=== PATIENT | male | born 1955 | race Caucasian/White ===

== ENCOUNTER 2020-09-21 11:28 | Emergency (ER) | payer MEDICARE, OTHER, SELFPAY ==
[2020-09-21 11:40] VITALS: BP 154/81; PULSE 62; RESP 15; TEMP 37.2; O2SAT 98; BMI 27.9
--- NOTE | 2020-09-21 12:56 | ED_ITS ---
HPI - Extremity Problem General Chief complaint: Extremity Problem,Nontraumatic Stated complaint: blood clot in leg/ from walk in Time Seen by Provider: 09/21/20 12:51 Source: patient Mode of arrival: Ambulatory Limitations: no limitations History of Present Illness HPI Narrative: Patient complains of swelling to the left proximal medial leg. Denies any known injury. Has swelling and then dependent ecchymosis since Wednesday. Denies any history of blood clots in legs or lungs. Denies any chest pain or dyspnea or palpitations. Patient not on any anticoagulation other than aspirin. No liver disease. No history anemia or thrombocytopenia. Related Data Home Medications Medication Instructions Recorded Confirmed aspirin 81 mg tablet,delayed 81 mg PO DAILY 09/21/20 09/21/20 release Allergies Allergy/AdvReac Type Severity Reaction Status Date / Time erythromycin base Allergy Verified 09/21/20 11:46 Review of Systems Review of Systems Narrative: GENERAL: Denies chills, fatigue, malaise, fever, sweats. HEENT: Denies sinus pain, ear pain, sore throat RESPIRATORY: Denies dyspnea, cough CARDIOVASCULAR: Denies chest pain, palpitations GASTROINTESTINAL: Denies nausea, vomiting, abdominal pain : Denies dysuria, frequency, hematuria MUSCULOSKELETAL: Complaint muscle or bony pain SKIN: Denies rash, skin lesions NEUROLOGIC: Denies weakness, numbness ROS Unobtainable: All systems reviewed & are unremarkable except as noted in HPI and below Patient History Social History Smoking Status: Unknown if ever smoked Smoking Status: Unknown if ever smoked alcohol intake frequency: 0-2 drinks per day Substance Use Type: does not use Exam Narrative Exam Narrative: GENERAL: in no distress, not toxic not dyspneic HEAD: Normocephalic. EYES: Pupils equal round ENT: Mucous membranes moist. NECK: Trachea midline. CARDIOVASCULAR: Regular rate and rhythm without murmurs RESPIRATORY: Clear to auscultation. Breath sounds equal bilaterally. No wheezes, rales, or rhonchi. GASTROINTESTINAL: Abdomen soft, non-tender EXTREMITIES: Examination left lower extremity. Needed toes exposed. Foot warm soft and pink with strong pedal pulse and light touch intact to foot and toes. Nontender knee and ankle. At the medial proximal leg there is 4 cm diameter mob ile mildly tender cyst/hematoma. There is dependent ecchymoses tracking inferiorly to this. No calf tenderness or palpable cords. No pain with press test or Stanley test NEURO: AOx4. SKIN: Warm and dry PSYCH: Not anxious, is cooperative Initial Vital Signs Initial Vital Signs: Vital Signs Temperature 98.9 F 09/21/20 11:40 Pulse Rate 62 09/21/20 11:40 Respiratory Rate 15 09/21/20 11:40 Blood Pressure 154/81 H 09/21/20 11:40 Pulse Oximetry 98 09/21/20 11:40 Course Course Course Narrative: No new issues during course of stay Orders Ordered: ED Orders 09/21/20 12:55 US periph venous low extrem lt Stat 09/21/20 12:58 XR tibia fibula LT 2V Stat Reevaluation(s) Reevaluation #1: Reviewed with patient results. Agrees no blood work. At this time no risk factors for coagulopathy. Time: 14:19 Vital Signs Vital signs: Vital Signs - 8 hr 09/21/20 11:40 Temperature 98.9 F Pulse Rate 62 Respiratory Rate 15 Blood Pressure 154/81 H Pulse Oximetry 98 MDM - Extremity (Nontraumatic) Differential Diagnosis Differential diagnosis: Likely superficial thrombophlebitis, deep vein thrombosis of lower extremity and other (Hematoma) Imaging Data US - DVT: Radiologist's Impression: [address] [id number] ReportSigned Patient: Phil Lovett#: [id number]: 5Acct:[id number]/Sex: 65 / MDate of Service: 09/21/20Loc: EDAccession Number: [id number] Procedure: US periph venous low extrem lt Ordering Provider: Shlomo Betnacourt MD PROCEDURE: US PERIPH VENOUS LOW EXTREM LT INDICATIONS: LEFT LOVING HEMATOMA TECHNIQUE: Real-time imaging, as well as color and pulse Doppler interrogation, were performed of the lower extremity deep veins from the inguinal ligament to the popliteal fossa. COMPARISON: None. FINDINGS: The common femoral, femoral and popliteal veins are normally compressible, and free of intraluminal thrombus. Color and pulse Doppler demonstrate normal phasic intraluminal flow. There is normal augmentation response to distal compression maneuver. 2.2 x 1.3 x 2.5 centimeter complex fluid collection noted in the area of clinical concern compatible with reported history of loving hematoma. IMPRESSION: No evidence of deep vein thrombosis involving the left lower extremity. Dictated by: Dang Tobias MD, PhD on 09/21/2020 at 13:30 Approved by: Dang Tobias MD, PhD on 09/21/2020 at 13:30 Extremity x-ray #1: Radiologist's Impression: [place] [id number] [place] [id number] ReportSigned Patient: Mejia LovettMR#: [id number]: 5Acct:[id number]/Sex: 65 / MDate of Service: 09/21/20Loc: EDAccession Number: [id number] Procedure: XR tibia fibula LT 2V Ordering Provider: Shlomo Betancourt MD PROCEDURE: XR TIBIA FIBULA LT 2V INDICATIONS: Pain/swelling TECHNIQUE: 2 views of the tibia and fibula were acquired. COMPARISON: [facility], PERIP VENOUS LOW EXTREM LT, 09/21/2020, 13:12. FINDINGS: Bones: No fractures or dislocations. No suspicious bony lesions. Soft tissues: There is mild soft tissue swelling seen. No radiopaque foreign bodies are seen. IMPRESSION: Mild soft tissue swelling is seen. Dictated by: Ignacio Ruiz M.D. on 09/21/2020 at 13:08 Approved by: Ignacio Ruiz M.D. on 09/21/2020 at 13:09 [facility] Narrative Medical decision making narrative: Appropriate for discharge home. Exam and imaging reassuring. Patient not toxic. He agrees with treatment plan and follow-up. Discharge Plan Departure Patient Disposition: Home Clinical Impression: Hematoma and contusion Instructions: DI for Hematoma (Bruise) Activity Restrictions/Additional Instructions: Return if any questions or concerns or if any worsening symptoms. Ice and elevate leg as needed 20 minutes at time for pain and swelling. See family doct or week for recheck. Call provided referral number on Wednesday to attain family doctor. Prescriptions: No Action aspirin [Adult Aspirin Regimen] 81 mg tablet,delayed release (DR/EC) 81 mg PO DAILY RF: 0 Referrals: [facility] [Outside] Miscellaneous,DoctorMD [Primary Care Provider] -
== END 2020-09-21 14:24 | disposition home or self-care (01) ==
PROVIDERS: Emergency Provider Emergency Medicine
DX: S80.12XA Contusion of left lower leg, initial encounter (principal)
CPT/HCPCS: 73590; 93971; 99281; 99283

== ENCOUNTER → 2021-04-01 13:04 | Outpatient (CLI) | payer MEDICARE, OTHER, SELFPAY ==
[2021-04-01 15:01] LABS: Alanine Aminotransferase 34 IU/L (<50); Albumin 4.4 g/dL (3.5-5.0); Albumin Globulin Ratio 1.6 (1.0-2.8); Alkaline Phosphatase 114 U/L (38-126); Aspartate Aminotransferase 31 IU/L (17-59); BUN Creatinine Ratio 23.9 (6-22); Bilirubin Total 0.5 mg/dL (0.2-1.3); Blood Urea Nitrogen 22 mg/dL (9-20); Carbon Dioxide 31 mmol/L (22-32); Chloride 103 mmol/L (98-107); Cholesterol 205 mg/dL (140-199); Estimated Glomerular Filt Rate > 60.0 mL/min (>60); Globulin 2.7 g/dL (1.7-4.1); Glucose 98 mg/dL (80-110); HDL Cholesterol 92 mg/dL (40-60); HEMOLYSIS < 15 (0-50); LDL Cholesterol Calculated 100 mg/dL (<100); Potassium 5.1 mmol/L (3.4-5.1); Sodium 142 mmol/L (137-145); Total Protein 7.1 g/dL (6.3-8.2); Triglycerides 64 mg/dL (35-150)
[2021-04-01 15:28] LABS: Prostate Specific Antigen Scrn 4.71 ng/mL (0.1-4.0); TSH w/ Reflex to FT4 1.51 uIU/mL (0.47-4.68)
== END ==
PROVIDERS: PCP Internal Medicine; Referring Provider Internal Medicine; Visit Provider Internal Medicine
DX: E78.2 Mixed hyperlipidemia (principal); Z12.5 Encounter for screening for malignant neoplasm of prostate; I10 Essential (primary) hypertension; K21.9 Gastro-esophageal reflux disease without esophagitis; R05.3 Chronic cough
CPT/HCPCS: 36415; 80053; 80061; 84443; G0103

== ENCOUNTER → 2021-04-08 11:26 | Outpatient (CLI) | payer MEDICARE, OTHER, SELFPAY ==
[2021-04-09 09:28] LABS: PSA Free % 17.7 % (.); PSA, Total 3.1 ng/mL (0.0-4.0)
== END ==
PROVIDERS: PCP Internal Medicine; Referring Provider Internal Medicine; Visit Provider Internal Medicine
DX: R97.20 Elevated prostate specific antigen [PSA] (principal); I10 Essential (primary) hypertension; E78.2 Mixed hyperlipidemia
CPT/HCPCS: 36415; 84153; 84154

== ENCOUNTER → 2021-10-16 10:17 | Outpatient (CLI) | payer MEDICARE, OTHER, SELFPAY ==
[2021-10-16 11:02] LABS: HEMOLYSIS < 15 (0-50)
[2021-10-16 11:07] LABS: Alanine Aminotransferase 36 IU/L (<50); Albumin 4.3 g/dL (3.5-5.0); Albumin Globulin Ratio 1.5 (1.0-2.8); Alkaline Phosphatase 99 U/L (38-126); Aspartate Aminotransferase 33 IU/L (17-59); BUN Creatinine Ratio 23.1 (6-22); Bilirubin Total 0.6 mg/dL (0.2-1.3); Blood Urea Nitrogen 21 mg/dL (9-20); Calcium 9.2 mg/dL (8.4-10.2); Carbon Dioxide 30 mmol/L (22-32); Chloride 105 mmol/L (98-107); Cholesterol 198 mg/dL (140-199); Estimated Glomerular Filt Rate > 60 mL/min (>60); Globulin 2.9 g/dL (1.7-4.1); Glucose 113 mg/dL (80-110); HDL Cholesterol 74 mg/dL (40-60); LDL Cholesterol Calculated 109 mg/dL (<100); Potassium 4.1 mmol/L (3.4-5.1); Sodium 141 mmol/L (137-145); Total Protein 7.2 g/dL (6.3-8.2); Triglycerides 75 mg/dL (35-150)
== END ==
PROVIDERS: PCP Internal Medicine; Referring Provider Internal Medicine; Visit Provider Internal Medicine
DX: I10 Essential (primary) hypertension (principal); R97.20 Elevated prostate specific antigen [PSA]; E78.2 Mixed hyperlipidemia; K21.9 Gastro-esophageal reflux disease without esophagitis
CPT/HCPCS: 36415; 80053; 80061; 84153

== ENCOUNTER → 2022-09-08 10:56 | Outpatient (CLI) | payer MEDICARE, SELFPAY ==
[2022-09-08 12:43] LABS: Alanine Aminotransferase 31 IU/L (<50); Albumin 4.2 g/dL (3.5-5.0); Albumin Globulin Ratio 1.5 (1.0-2.8); Alkaline Phosphatase 119 U/L (38-126); Aspartate Aminotransferase 28 IU/L (17-59); BUN Creatinine Ratio 25.3 (6-22); Bilirubin Total 0.6 mg/dL (0.2-1.3); Blood Urea Nitrogen 21 mg/dL (9-20); Calcium 9.4 mg/dL (8.4-10.2); Carbon Dioxide 30 mmol/L (22-32); Chloride 103 mmol/L (98-107); Cholesterol 208 mg/dL (140-199); Estimated Glomerular Filt Rate > 60 mL/min (>60); Globulin 2.8 g/dL (1.7-4.1); Glucose 103 mg/dL (80-110); HDL Cholesterol 83 mg/dL (40-60); HEMOLYSIS < 15 (0-50); LDL Cholesterol Calculated 111 mg/dL (<100); Potassium 4.4 mmol/L (3.4-5.1); Sodium 140 mmol/L (137-145); Triglycerides 72 mg/dL (35-150)
== END ==
PROVIDERS: PCP Internal Medicine; Referring Provider Internal Medicine; Visit Provider Internal Medicine
DX: E78.2 Mixed hyperlipidemia (principal); R97.20 Elevated prostate specific antigen [PSA]; I10 Essential (primary) hypertension
CPT/HCPCS: 36415; 80053; 80061; 84153

== ENCOUNTER → 2022-11-22 13:40 | Outpatient (CLI) | payer MEDICARE, SELFPAY ==
--- NOTE | 2022-11-22 13:42 | DI.RAD.S_ITS ---
PROCEDURE: XR KNEE RT 3V INDICATIONS: Fall TECHNIQUE: 3 views of the knee were acquired. COMPARISON: None. FINDINGS: Bones: No fractures or dislocations. No suspicious bony lesions. Soft tissues: No joint effusion. No suspicious soft tissue calcifications. IMPRESSION: Unremarkable right knee radiographs Approved by: Ivan Boucher M.D. on 11/22/2022 at 15:43
== END ==
PROVIDERS: PCP Internal Medicine; Referring Provider Nurse Practitioner Family; Visit Provider Nurse Practitioner Family
DX: M25.561 Pain in right knee (principal)
CPT/HCPCS: 73562

== ENCOUNTER → 2022-11-25 12:08 | Outpatient (CLI) | payer MEDICARE, SELFPAY ==
--- NOTE | 2022-11-25 12:09 | DI.US.S_ITS ---
PROCEDURE: US PERIPH VENOUS LOW EXTREM RT INDICATIONS: SWELLING TECHNIQUE: Real-time imaging, as well as color and pulse Doppler interrogation, were performed of the lower extremity deep veins from the inguinal ligament to the popliteal fossa, with documentation of the visualized calf veins. COMPARISON: None. FINDINGS: The common femoral, femoral, popliteal, and the visualized calf veins are normally compressible, and free of intraluminal thrombus. Color and pulse Doppler demonstrate normal phasic intraluminal flow. There is normal augmentation response to distal compression maneuver. Complicated hypo echoic structure in the medial soft tissues measures 5.6 x 3.4 x 0.8 cm. IMPRESSION: No findings of lower extremity deep venous thrombosis. Probable soft tissue hematoma medially Approved by: Ivan Boucher M.D. on 11/25/2022 at 13:35
--- NOTE | 2022-11-25 12:09 | DI.RAD.S_ITS ---
PROCEDURE: XR ANKLE RT MIN 3V INDICATIONS: Right ankle swelling TECHNIQUE: 3 views of the ankle were acquired. COMPARISON: None. FINDINGS: Bones: No fractures or dislocations. Ankle mortise is normally aligned. No suspicious bony lesions. Soft tissues: Mild ankle edema Achilles tendon appears normal. IMPRESSION: Ankle edema. No visualized acute fracture or dislocation. However, if clinical concern and/or pain persist, short interval imaging followup in 7-10 days is recommended, as occult injury cannot be definitively excluded. Dictated by: Hodan Fang M.D. on 11/25/2022 at 15:51 Approved by: Hodan Fang M.D. on 11/25/2022 at 15:52
== END ==
PROVIDERS: PCP Internal Medicine; Referring Provider Nurse Practitioner Family; Visit Provider Nurse Practitioner Family
DX: M25.471 Effusion, right ankle (principal); M79.89 Other specified soft tissue disorders; S89.90XA Unspecified injury of unspecified lower leg, initial encounter
CPT/HCPCS: 73610; 93971

== ENCOUNTER → 2022-12-09 14:13 | Outpatient (CLI) | payer MEDICARE, SELFPAY ==
--- NOTE | 2022-12-09 14:15 | DI.RAD.S_ITS ---
PROCEDURE: XR KNEE RT 3V INDICATIONS: persistent swelling/pain post injury 2 wk ferry [employer] TECHNIQUE: 3 views of the knee were acquired. COMPARISON: [facility], CR, XR KNEE RT 3V, 11/22/2022, 13:51. FINDINGS: Bones: No fractures or dislocations. No suspicious bony lesions. Soft tissues: No joint effusion. No suspicious soft tissue calcifications. IMPRESSION: No displaced fracture. Dictated by: Hunter Henning M.D. on 12/09/2022 at 16:10 Approved by: Hunter Henning M.D. on 12/09/2022 at 16:10
--- NOTE | 2022-12-09 14:15 | DI.RAD.S_ITS ---
PROCEDURE: XR FOOT RT MIN 3V INDICATIONS: heel pain, worsening edema TECHNIQUE: 3 views of the foot were acquired. COMPARISON: None. FINDINGS: Bones: No fractures or dislocations. No suspicious bony lesions. Soft tissues: No tibiotalar joint effusion. Achilles tendon appears normal. IMPRESSION: No acute bony abnormality. Dictated by: Hunter Henning M.D. on 12/09/2022 at 16:10 Approved by: Hunter Henning M.D. on 12/09/2022 at 16:11
== END ==
PROVIDERS: PCP Internal Medicine; Referring Provider Student in an Organized Health Care Education/Training Program; Visit Provider Student in an Organized Health Care Education/Training Program
DX: M25.561 Pain in right knee (principal); M79.671 Pain in right foot
CPT/HCPCS: 73562; 73630

== ENCOUNTER → 2023-03-26 08:51 | Outpatient (CLI) | payer MEDICARE, SELFPAY ==
[2023-03-26 10:39] LABS: Prostate Specific Antigen 4.34 ng/mL (0.10-4.00)
== END ==
PROVIDERS: PCP Internal Medicine; Referring Provider Internal Medicine; Visit Provider Internal Medicine
DX: R97.20 Elevated prostate specific antigen [PSA] (principal); I10 Essential (primary) hypertension
CPT/HCPCS: 36415; 84153

== ENCOUNTER → 2023-04-01 14:18 | Outpatient (CLI) | payer MEDICARE, SELFPAY ==
--- NOTE | 2023-04-01 14:20 | DI.RAD.S_ITS ---
PROCEDURE: XR CHEST 2V INDICATIONS: chest pain TECHNIQUE: 2 views of the chest were acquired. COMPARISON: None. FINDINGS: Surgical changes and devices: None. Lungs and pleura: Lungs are clear. No pleural effusions or pneumothorax. Mediastinum: Mediastinal contours are normal. Heart size is normal. Bones and chest wall: No suspicious bony abnormalities. Soft tissues appear unremarkable. IMPRESSION: No acute cardiopulmonary abnormalities or focal airspace disease. Dictated by: Moose Brownlee M.D. on 04/01/2023 at 16:58 Approved by: Moose Brownlee M.D. on 04/01/2023 at 16:58
== END ==
PROVIDERS: PCP Internal Medicine; Referring Provider Internal Medicine; Visit Provider Internal Medicine
DX: R07.9 Chest pain, unspecified (principal)
CPT/HCPCS: 71046

== ENCOUNTER 2023-12-14 14:28 | Emergency (ER) | payer MEDICARE, SELFPAY ==
[2023-12-14 14:32] VITALS: BP 135/79; PULSE 79; RESP 18; TEMP 36.6; O2SAT 97; BMI 28.3
--- NOTE | 2023-12-14 14:38 | DI.RAD.S_ITS ---
PROCEDURE: XR ANKLE LT MIN 3V INDICATIONS: fall/pain TECHNIQUE: 3 views of the ankle were acquired. COMPARISON: None. FINDINGS: Bones: Minimally displaced oblique fracture of the distal fibular metaphysis extending in the mortise joint. Small posterior and plantar calcaneal enthesophytes. Soft tissues: Nonspecific soft tissue edema surrounding the ankle. IMPRESSION: Minimally displaced oblique fracture of the distal fibula. Approved by: Niraj Moralez M.D. on 12/14/2023 at 15:01
--- NOTE | 2023-12-14 18:11 | ED.LOWEXIN ---
HPI - Extremity Injury (Lower) General Chief Complaint: Extremity Injury, Lower Stated Complaint: Fall, ankle px, dizziness, nausea Time Seen by Provider: 12/14/23 17:58 Source: patient Mode of arrival: Ambulatory History of Present Illness HPI Narrative: Patient is a 68-year-old male here for evaluation fall that sustained yesterday. He states that he stepped through a ruggiero on his boat. He did hit his head but no loss of consciousness. Not on anticoagulation. Also injured his wrist but his biggest complaint is pain along the outside of his left ankle. He has been ambulatory but it hurts him quite a bit to walk. He did take some Tylenol earlier today which seems to have helped his symptoms somewhat. Related Data Home Medications Medication Instructions Recorded Confirmed aspirin 81 mg tablet,delayed 81 mg PO DAILY 09/21/20 04/01/23 release (Adult Aspirin Regimen) Turmeric 1 tab PO DAILY 02/04/21 04/01/23 Vitamin D 1 tab PO DAILY 02/04/21 04/01/23 cinnamon bark 500 mg capsule 1,000 mg PO DAILY 02/04/21 04/01/23 (Cinnamon) multivitamin 1 tab PO DAILY 02/04/21 04/01/23 Vitamin C 2 tab PO DAILY 04/08/21 04/01/23 mecobalamin (vitamin B12) 1 tab PO DAILY 09/05/21 04/01/23 Previous Rx's Medication Instructions Recorded pravastatin 40 mg tablet 40 mg PO DAILY #90 tabs 03/08/23 amlodipine 10 mg tablet 10 mg PO DAILY #90 tabs 09/08/23 pantoprazole 40 mg tablet,delayed 40 mg PO DAILY #90 tabs 09/27/23 release (Protonix) Allergies Allergy/AdvReac Type Severity Reaction Status Date / Time erythromycin base AdvReac Severe Nausea Verified 04/01/23 13:30 Review of Systems Review of Systems Narrative: See HPI Patient History Medical History Elevated PSA Mixed hyperlipidemia Diverticular disease of colon Essential hypertension Hearing loss Chronic cough (~2016) Depression (~2001) Pars planitis (~1976) History of elevated PSA (~2009) Irritable bowel syndrome (~2007) GERD (gastroesophageal reflux disease) (~2004) Colon polyps (~2017) Surgical History Anesthesia History of colonoscopy Ingrown toenail of right foot Family History Father Cancer Mental health problem Skin cancer Mother Diabetes mellitus History of heart disease Hypertension Hyperlipidemia Alcoholism Brother COPD (chronic obstructive pulmonary disease) Brother Atrial fibrillation Sister Skin cancer Family/Other Mental health problem History of bipolar disorder Social History Smoking Status: Never smoker Smoking Status: Never smoker alcohol intake frequency: 0-2 drinks per day Substance Use Type: does not use Exam Initial Vital Signs Initial Vital Signs: Vital Signs Temperature 98 F 12/14/23 14:32 Pulse Rate 79 12/14/23 14:32 Respiratory Rate 18 12/14/23 14:32 Blood Pressure 135/79 12/14/23 14:32 Pulse Oximetry 97 12/14/23 14:32 Oxygen Delivery Method Room Air 12/14/23 14:32 HENMT Head: normal to inspection and normocephalic Cardio Pulses: dorsalis pedis present on the left Skin General: no rashes or lesions noted Neuro Sensory Exam: no sensory deficits noted Extrem Other: Some swelling and discomfort and bruising to the distal aspect of the fibula. No proximal fibula tenderness. No medial malleolar tenderness. Achilles tendon is intact. Foot is unremarkable. Procedures Orthopedic Splinting/Casting Injury #1: Side: left Lower Extremity Injury Location: ankle Lower Extremity Immobilizer: boot orthosis Post splinting neuro exam: no change Post splinting vascular exam: no change Placed by: Nursing Course Orders Ordered: ED Orders 12/14/23 14:38 XR ankle LT min 3V Stat Vital Signs Vital signs: Vital Signs - 8 hr 12/14/23 18:22 Pulse Rate 60 Blood Pressure 156/92 H Pulse Oximetry 96 Oxygen Delivery Method Room Air MDM - Extremity Injury (Lower) Imaging Data Extremity x-ray #1: Radiologist's Impression: PROCEDURE: XR ANKLE LT MIN 3V INDICATIONS: fall/pain TECHNIQUE: 3 views of the ankle were acquired. COMPARISON: None. FINDINGS: Bones: Minimally displaced oblique fracture of the distal fibular metaphysis extending in the mortise joint. Small posterior and plantar calcaneal enthesophytes. Soft tissues: Nonspecific soft tissue edema surrounding the ankle. IMPRESSION: Minimally displaced oblique fracture of the distal fibula. [facility] Narrative Medical decision making narrative: X-ray show isolated distal fibula fracture. This was a mechanical fall. He is alert and oriented x3. GCS of 15. Has full range of motion of his other extremities/joints. I do feel that we can hold on further imaging for now. He was placed in a boot for the fibula fracture. Patient was given information for follow-up with orthopedics. He was given return expressed agreement. Discharge Plan Departure Patient Disposition: Home Clinical Impression: Fracture, fibula Instructions: How to Use a Walking Boot, Fibula Shaft Fracture Activity Restrictions/Additional Instructions: The orthopedic boot should be worn when you were standing or walking. You can use the crutches that you have at home as needed however you can walk on your left leg as tolerated. You can take the boot off to shower at night and also when you were sleeping. You can use [id number] medications as needed. Return to the emergency department for new or worsening symptoms. Prescriptions: No Action aspirin [Adult Aspirin Regimen] 81 mg tablet,delayed release (DR/EC) 81 mg PO DAILY pravastatin 40 mg tablet 40 mg PO DAILY Qty: 90 3RF amlodipine 10 mg tablet 10 mg PO DAILY Qty: 90 3RF pantoprazole [Protonix] 40 mg tablet,delayed release (DR/EC) 40 mg PO DAILY Qty: 90 1RF mecobalamin (vitamin B12) 1 tab PO DAILY Turmeric 1,000 mg 1 tab PO DAILY Vitamin D 1 tab PO DAILY multivitamin Tablet 1 tab PO DAILY cinnamon bark [Cinnamon] 500 mg capsule 1,000 mg PO DAILY Vitamin C 2,000 mg 2 tab PO DAILY Referrals: Neelima Nicole MD [Physician] - Bradley Estrada MD [Primary Care Provider] - Stand Alone Forms: Patient Portal/API
[2023-12-14 18:22] VITALS: BP 156/92; PULSE 60; O2SAT 96
== END 2023-12-14 18:22 | disposition home or self-care (01) ==
PROVIDERS: Emergency Provider Emergency Medicine; PCP Internal Medicine
DX: S82.402A Unspecified fracture of shaft of left fibula, initial encounter for closed fracture (principal); S09.90XA Unspecified injury of head, initial encounter; S69.91XA Unspecified injury of right wrist, hand and finger(s), initial encounter; S69.92XA Unspecified injury of left wrist, hand and finger(s), initial encounter; W18.30XA Fall on same level, unspecified, initial encounter
CPT/HCPCS: 73610; 99281; 99283

== ENCOUNTER → 2024-02-14 11:22 | Outpatient (CLI) | payer MEDICARE, SELFPAY ==
[2024-02-14 13:06] LABS: HEMOLYSIS < 15 (0-50)
[2024-02-14 13:11] LABS: Alanine Aminotransferase 31 IU/L (<50); Albumin 4.2 g/dL (3.5-5.0); Albumin Globulin Ratio 1.6 (1.0-2.8); Alkaline Phosphatase 130 U/L (38-126); Aspartate Aminotransferase 29 IU/L (17-59); BUN Creatinine Ratio 18.2 (6-22); Bilirubin Total 0.6 mg/dL (0.2-1.3); Blood Urea Nitrogen 18 mg/dL (9-20); Calcium 9.8 mg/dL (8.4-10.2); Carbon Dioxide 32 mmol/L (22-32); Chloride 103 mmol/L (98-107); Cholesterol 178 mg/dL (140-199); Estimated Glomerular Filt Rate > 60 mL/min (>60); Globulin 2.7 g/dL (1.7-4.1); Glucose 98 mg/dL (80-110); HDL Cholesterol 77 mg/dL (40-60); LDL Cholesterol Calculated 89 mg/dL (<100); Potassium 4.8 mmol/L (3.4-5.1); Sodium 140 mmol/L (137-145); Total Protein 6.9 g/dL (6.3-8.2); Triglycerides 58 mg/dL (35-150)
[2024-02-14 13:45] LABS: Prostate Specific Antigen 5.44 ng/mL (0.10-4.00)
== END ==
PROVIDERS: PCP Internal Medicine; Referring Provider Internal Medicine; Visit Provider Internal Medicine
DX: E78.2 Mixed hyperlipidemia (principal); R97.20 Elevated prostate specific antigen [PSA]; I10 Essential (primary) hypertension
CPT/HCPCS: 36415; 80053; 80061; 84153

== ENCOUNTER → 2024-10-26 16:33 | Outpatient (CLI) | payer MEDICARE, OTHER, SELFPAY ==
[2024-10-26 19:12] LABS: Prostate Specific Antigen 6.33 ng/mL (0.10-4.00)
== END ==
LOC: LAB 16:34
PROVIDERS: PCP Internal Medicine; Referring Provider Internal Medicine; Visit Provider Internal Medicine
DX: R97.20 Elevated prostate specific antigen [PSA] (principal)
CPT/HCPCS: 36415; 84153

== ENCOUNTER → 2025-01-18 09:32 | Outpatient (CLI) | payer MEDICARE, OTHER, SELFPAY ==
[2025-01-18 11:16] LABS: Alanine Aminotransferase 36 IU/L (<50); Albumin 4.6 g/dL (3.5-5.0); Albumin Globulin Ratio 1.4 (1.0-2.8); Alkaline Phosphatase 148 U/L (38-126); Blood Urea Nitrogen 18 mg/dL (9-20); Calcium 10.0 mg/dL (8.4-10.2); Carbon Dioxide 28 mmol/L (22-32); Chloride 103 mmol/L (98-107); Cholesterol 201 mg/dL (140-199); Estimated Glomerular Filt Rate > 60 mL/min (>60); Globulin 3.2 g/dL (1.7-4.1); Glucose 95 mg/dL (70-99); HDL Cholesterol 107 mg/dL (40-60); HEMOLYSIS < 15 (0-50); Potassium 4.9 mmol/L (3.4-5.1); Sodium 140 mmol/L (137-145); Total Protein 7.8 g/dL (6.3-8.2); Triglycerides 55 mg/dL (35-150)
[2025-01-18 11:46] LABS: Prostate Specific Antigen 9.14 ng/mL (0.10-4.00)
== END ==
PROVIDERS: PCP Internal Medicine; Referring Provider Internal Medicine; Visit Provider Internal Medicine
DX: E78.2 Mixed hyperlipidemia (principal); R97.20 Elevated prostate specific antigen [PSA]; I10 Essential (primary) hypertension
CPT/HCPCS: 36415; 80053; 80061; 84153

== ENCOUNTER 2025-03-06 09:24 | Day surgery (SDC) | payer MEDICARE, OTHER, SELFPAY ==
--- NOTE | 2025-03-06 | PATH_ITS ---
[facility] Accession Number: [id number] No. of containers..01 Tissue . 01 Material submitted: . colon - COLON, DESCENDING POLYP . 01 Diagnosis: COLON, DESCENDING POLYP: Tubular adenoma. [facility] 03/14/20251753 Local . 01 Electronically signed: . Eleuterio Bedolla MD, Pathologist NPI- [id number] . 01 Gross description: . Received in formalin, labeled with two patient identifiers, and descending colon polyp is one 0.5 cm sánchez tissue fragment, entirely submitted in A1. ([id number]) /MRV 03/14/20251753 Local . 01 Pathologist provided ICD-10: D12.4 . 01 CPT . 438808 Specimen Comment: A courtesy copy of this report has been sent to [phone] Performed at: [address] [facility] [id number] MD Eleuterio Bedolla MD Phone: [phone]
[2025-03-06 09:42] VITALS: BP 144/80; PULSE 73; RESP 12; TEMP 36.2; O2SAT 96
[2025-03-06] MEDS: LACTATED RINGERS 1,000 ML 42 ML IV (10:00)
--- NOTE | 2025-03-06 10:27 | PM.HP.IH.1 ---
History of Present Illness History of Present Illness Date Patient Seen: 03/06/25 Time Patient Seen: 10:27 Chief complaint: Colonoscopy Narrative: Familia is a 70-year-old man who presents for a colonoscopy. His last colonoscopy was in about 2018 he had one polyp. He has a half-sister to the from colon cancer in her 90s. [facility] Medical History Elevated PSA Mixed hyperlipidemia Diverticular disease of colon Essential hypertension Hearing loss Chronic cough (~2016) Depression (~2001) Pars planitis (~1976) History of elevated PSA (~2009) Irritable bowel syndrome (~2007) GERD (gastroesophageal reflux disease) (~2004) Colon polyps (~2017) Surgical History Anesthesia History of colonoscopy Ingrown toenail of right foot Family History Father Cancer Mental health problem Skin cancer Mother Diabetes mellitus History of heart disease Hypertension Hyperlipidemia Alcoholism Brother COPD (chronic obstructive pulmonary disease) Brother Atrial fibrillation Sister Skin cancer Colon cancer Family/Other Age: 40 Mental health problem History of bipolar disorder Social History Smoking Status: Never smoker alcohol intake: current Meds Home Medications and Allergies Home Medications ?Medication ?Instructions ?Recorded ?Confirmed ?Type aspirin 81 mg tablet,delayed 81 mg PO DAILY 09/21/20 03/06/25 History release (Adult Aspirin Regimen) Turmeric 1 tab PO DAILY 02/04/21 02/06/25 History Vitamin D 1 tab PO DAILY 02/04/21 02/06/25 History cinnamon bark 500 mg capsule 1,000 mg PO DAILY 02/04/21 02/06/25 History (Cinnamon) multivitamin 1 tab PO DAILY 02/04/21 02/06/25 History Vitamin C 2 tab PO DAILY 04/08/21 02/06/25 History mecobalamin (vitamin B12) 1 tab PO DAILY 09/05/21 02/06/25 History pantoprazole 40 mg tablet,delayed 40 mg PO DAILY #90 tabs 04/20/24 03/06/25 Rx release (Protonix) pravastatin 40 mg tablet 40 mg PO DAILY #90 tabs 01/17/25 02/06/25 Rx amlodipine 10 mg tablet 10 mg PO DAILY #90 tabs 03/05/25 03/06/25 Rx Allergies Allergy/AdvReac Type Severity Reaction Status Date / Time erythromycin base AdvReac Severe Nausea Verified 03/06/25 09:34 Exam Vital Signs (past 8 hours): - 03/06/25 09:42 Temperature 97.1 F L Pulse Rate 73 Respiratory Rate 12 Blood Pressure 144/80 H Pulse Oximetry 96 Oxygen Delivery Method Room Air Oxygen Delivery Method Room Air Const General: healthy appearing Assessment & Plan Assessment and plan (1) History of colon polyps: Status: Acute Plan Colonoscopy for history of polyps Time-Based Coding :: [TOTAL MINUTES] spent with patient and on the chart (including review of chart, obtaining history, exam, reviewing outside data, placing orders, documenting exam and treatment plan, and counseling patient) on [DATE]. [employer] Associate Document charge(s): No
--- NOTE | 2025-03-06 11:01 | PM.OP.COLON ---
Operative Date/Time/Diagnoses Date of procedure: 03/06/25 Time of procedure: 11:01 Pre-op diagnosis: History of polyps Post-op diagnosis: same Procedure & Clinicians Study performed: Colonoscopy Same procedure(s) as scheduled: Yes Surgeon: Michael Bingham Anesthesia Type: MAC +/- Procedure Notes Procedure in detail: Surgeon: Michael Bingham MD Anesthesia: Krystle Charlene HOME COMFORT ADVISOR Procedure: The patient was brought to the endoscopy suite, placed in left lateral decubitus position. The patient was connected to monitoring devices. A time-out was performed. Sedation was administered. Once the patient was adequately sedated, a digital rectal exam was performed and was normal. The scope was then inserted and advanced to the cecum where the appendiceal orifice was identified and photographed. The scope was then slowly withdrawn over greater than 6 minutes. The mucosa was thoroughly inspected. There was one small polyp in the descending colon roughly 2 mm, removed with a cold snare. The scope was retroflexed in the rectum. No other abnormalities were found. The scope was straightened and removed. The patient was awakened and brought to recovery. Scope withdrawal time: 9 minute Sedation time: 19 minutes Findings: One small polyp in the descending colon Estimated Blood Loss: 2 Complications: none Post-procedure Disposition: PACU
[2025-03-06 11:03] VITALS: BP 101/70; PULSE 71; RESP 16; TEMP 36.2; O2SAT 95
[2025-03-06 11:05] VITALS: BP 109/68; PULSE 75; RESP 16; O2SAT 96
== END 2025-03-06 11:27 | disposition home or self-care (01) ==
PROVIDERS: PCP Internal Medicine; Referring Provider Surgery; Visit Provider Surgery
PROC: 0DJD8ZZ Inspection of Lower Intestinal Tract, Via Natural or Artificial Opening Endoscopic (ICD-10-PCS; CPT 45378; principal; 2025-03-06 10:30)
DX: Z12.11 Encounter for screening for malignant neoplasm of colon (principal); D12.4 Benign neoplasm of descending colon; Z86.0100 Personal history of colon polyps, unspecified; I10 Essential (primary) hypertension; E78.2 Mixed hyperlipidemia; K21.9 Gastro-esophageal reflux disease without esophagitis
CPT/HCPCS: 45385; J2704; J7120